=== PATIENT | female | born 1960 | race Caucasian/White ===

== ENCOUNTER → 2020-06-29 | Outpatient (CLI) | payer OTHER ==
[~2020-06-29] MED LIST: ACET65TA OR; ADV500INH INH; AFRIN; ALBU1.25 INH; ALBU17IN INH; ALBU83IN INH; BACT800T5 PO; BUTR5DIS2 TD; CARV6.25 OR; CELE10TA PO; CEPH500T OR; CLOP75TA2 PO; CRES20TA PO; CRES40TA PO; DOXY75CA3 PO; DRIS1CAP PO; DRIS50003 PO; ENAL5TA PO; FLUT22IN INH; GLUC500T PO; MECL1TAB31 PO; MIRA0.12 PO; NICO21DI3 TD; PLAV75TA2 PO; REQU1TAB16 PO; SIMV20TA2 PO; SPIR1CAP INH; SPIRIVA INH; VICO5TAB PO; XANA0.25 PO; ZETI10TA OR; ZETI10TA16 PO; spiriva INH
--- NOTE | 2020-06-29 09:31 | REP ---
INDICATION: N95.0 POSTMENOPAUSAL BLEEDING COMPARISON: None. TECHNIQUE: Transabdominal pelvic ultrasound followed by transvaginal examination for better evaluation of the endometrium and adnexa. FINDINGS: Bladder is under distended and measures approximately 7.4 x 2.4 X 5.9 cm Anteverted uterus measures 8.2 x 3.5 x 5.7 cm. The endometrial complex measures 5.4 mm thickness with suggestion for 1.2 cm endometrial polyp. Bilateral ovaries appear normal. Right ovary measures 1.9 x 1.7 x 1.3 cm. Left ovary measures 1.9 x 1.8 x 1.1 cm. No pelvic fluid or adnexal mass lesion. IMPRESSION: Limited examination due to body habitus, technical factors, and incomplete transvaginal portion of the examination. Possible 1.2 cm endometrial polyp. <Electronically signed by Roman Watkins > 06/29/20 0927
--- NOTE | 2020-06-29 10:10 | REPMRS ---
Patient History The patient states she has not had a clinical breast exam in over a year. Family history of unknown cancer at age 50 or over in mother, colorectal cancer at age 50 or over in maternal aunt, colorectal cancer under age 50 in maternal aunt. Digital Woman Screen Mammo: June 29, 2020 - Exam #: [id number] Bilateral CC and MLO view(s) were taken. Technologist: RT Paige Prior study comparison: July 20, 2015, digital mammo diagnostic bilateral, performed at [facility]. June 18, 2014, digital woman screen mammo performed at [facility]. June 16, 2013, digital mammo diagnostic bilateral, performed at [facility]. FINDINGS: The breast tissue is almost entirely fat. The Volpara volumetric breast density category is: A. There has been no change in the appearance of the mammogram from the prior studies. There is no interval development of dominant mass, architectural distortion, or grouped microcalcification typical of malignancy. 3-D tomosynthesis shows no additional findings. Assessment: BI-RADS/ACR category 1 mammogram. Negative Mammogram. Recommendation Routine screening mammogram of both breasts in 1 year (for women over age 40). This patient's [facility] Lifetime Breast Cancer RIsk is estimated at 6.6 %. This mammogram was interpreted with the aid of an FDA-approved computer-aided dectection system. Electronically Signed By: Clarence Reyes MD 06/29/20 [id number]
== END ==
LOC: M WHC 08:26
PROVIDERS: ATTEND Nurse Practitioner Family
DX: Z12.31 Encounter for screening mammogram for malignant neoplasm of breast (principal); N95.0 Postmenopausal bleeding; Z80.9 Family history of malignant neoplasm, unspecified

== ENCOUNTER → 2022-08-16 | Outpatient (CLI) | payer MEDICAID ==
[~2022-08-16] MED LIST changes: +ACET-840 PO; +ALBU2.5V10 INH; -ALBU83IN INH; +ASPI81TA26 PO; +ATOR80TA59 PO; +BISA10SU27 PR; +DONE10TA90 PO; +ENAL1TAB48 PO; -ENAL5TA PO; +FERR325T3 PO; +GLUC1KIT IM; +GNPSOL OP; +INSU100V13 SQ; +INSUHUMDS SC; +ISOS1TAB35 PO; +ISOS1TAB36 PO; +LIDO5DIS41 TOP; +MELA5CAP2 PO; +MEMA10TA19 PO; +METO50TA7 PO; +MILKSUS3 PO; +MYRB50TA PO; +NEUR100C PO; +NITR0.4S14 SL; +OMEG1CAP85 PO; +OMEP-173 PO; +SERT25TA85 PO; +ZOLO100T PO; +[UNRECOGNIZED DRUG - CODE] PR
[2022-08-16 14:35] VITALS: BP 120/57
[2022-08-16 16:01] LABS: APPEARANCE, BODY FLUID HAZY (CLEAR); ASCITES FL COLOR PALE YELLOW (COLORLESS); SOURCE, BODY FLUID ASCITES
[2022-08-16 16:16] LABS: SOURCE, BODY FLUID ALBUMIN ASCITES
[2022-08-16 16:23] LABS: SOURCE, BODY FLUID TOT PROTEIN ASCITES; TOTAL PROTEIN, BODY FLUID 2.5 G/DL (NOT ESTABLISHED)
== END ==
LOC: M IRPRO 13:27
PROVIDERS: ATTEND Internal Medicine Gastroenterology
DX: R18.8 Other ascites (principal); K74.60 Unspecified cirrhosis of liver; R14.0 Abdominal distension (gaseous)

== ENCOUNTER → 2022-08-27 | Outpatient (CLI) | payer MEDICAID | LOC: M RAD 12:13 | PROVIDERS: ATTEND Nurse Practitioner Family | DX: E13.51 Other specified diabetes mellitus with diabetic peripheral angiopathy without gangrene (principal) ==

== ENCOUNTER → 2022-09-07 | Outpatient (CLI) | payer MEDICAID | LOC: M RAD 09:36 | PROVIDERS: ATTEND Internal Medicine Gastroenterology | DX: K74.60 Unspecified cirrhosis of liver (principal); I87.8 Other specified disorders of veins; R16.1 Splenomegaly, not elsewhere classified; R18.8 Other ascites; K80.20 Calculus of gallbladder without cholecystitis without obstruction ==